=== PATIENT | female | born 1930 | race American Indian/Alaskan Native ===

== ENCOUNTER 2016-12-06 10:17 | Emergency (ER) | payer MEDICARE ==
--- NOTE | 2016-12-06 10:53 | C.PDOC ---
History Of Present Illness 86 y/o female with PMHx of COPD, HTN, and Hyperthyroidism, presents to the ED for evaluation of multiple complaints. Patient reports a cough which began around 2 days ago. Patient's family member also notes that she was complaining of diarrhea this morning, but patient denies such complaint currently. Patient also notes right lower leg pain associated with intermittent swelling which began around 6 months ago. Patient states her symptoms may have started after she underwent a stress test with Dr. Novak. Additionally, patient states she was instructed by her PMD to undergo radiology study pertaining to her leg symptoms. Patient is unaware of the type of study and the results. She denies fever, chills, chest pain, shortness of breath, diarrhea, nausea, vomiting, extremity numbness/weakness. PMD: Dr. Yony Cutler Time Seen by Provider: 12/06/16 10:42 Chief Complaint (Nursing): Lower Extremity Problem/Injury History Per: Patient, Family History/Exam Limitations: no limitations Onset/Duration Of Symptoms: Days, Intermittent Episodes Current Symptoms Are (Timing): Still Present Additional History Per: Patient, Family Past Medical History Reviewed: Historical Data, Nursing Documentation, Vital Signs Vital Signs: Last Vital Signs Temp 99.1 F 12/06/16 12:22 Pulse 74 12/06/16 12:22 Resp 20 12/06/16 12:22 BP 133/69 12/06/16 12:22 Pulse Ox 95 12/06/16 12:22 - Medical History PMH: COPD, HTN, Hyperthyroidism Surgical History: No Surg Hx Family History: States: Unknown Family Hx - Social History Hx Alcohol Use: No Hx Substance Use: No - Immunization History Hx Tetanus Toxoid Vaccination: No Hx Influenza Vaccination: No Hx Pneumococcal Vaccination: Yes (2008) Review Of Systems Constitutional: Negative for: Fever, Chills Cardiovascular: Negative for: Chest Pain Respiratory: Positive for: Cough. Negative for: Shortness of Breath Gastrointestinal: Negative for: Nausea, Vomiting, Abdominal Pain, Diarrhea Physical Exam - Physical Exam Appears: Non-toxic, No Acute Distress Skin: Normal Color, Warm, Dry Eye(s): bilateral: Normal Inspection Oral Mucosa: Moist Neck: Supple Chest: Symmetrical, No Deformity, No Tenderness Cardiovascular: Rhythm Regular, No Murmur Respiratory: No Rales, Rhonchi (generalized ), No Wheezing, Other (+wet cough noted ) Gastrointestinal/Abdominal: Soft, No Tenderness, No Guarding, No Rebound Extremity: Normal ROM, No Tenderness, Capillary Refill (less than 2 seconds ), Other (+1 pitting edema to ankles bilaterally; no leg asymmetry) Pulses: Left Dorsalis Pedis: Normal, Right Dorsalis Pedis: Normal Neurological/Psych: Normal Speech, Normal Cognition ED Course And Treatment - Laboratory Results Result Diagrams: 12/06/16 11:13 12/06/16 11:13 O2 Sat by Pulse Oximetry: 93 Pulse Ox Interpretation: Abnormal - Radiology CXR: Interpreted by Me CXR Interpretation: Yes: No Acute Disease Progress Note: Labs, EKG, Venous Duplex Scan RLE, CXR ordered and reviewed. Progress - Re-Evaluation Re-evaluation Note: 12/06/16 13:36 PT W HO RA? ?HO PRIOR ABN WBC ELEVATION. NO FEVER, NV, CHILLS. PT REFUSING TO WAIT FOR ESTHETIC DERMATOLOGIST FOR DVT STUDY. WISHES DC HOME, WILL FU W PMD THIS WEEK - Data Reviewed Data Reviewed: Lab, Diagnostic imaging, EKG, Old records - Continuity of Care Discussed patient case with:: Patient, Family-HIPPA compliant Disposition Counseled Patient/Family Regarding: Studies Performed, Diagnosis, Need For Followup - Disposition Referrals: YOUR,PMD [Other] Disposition: HOME/ ROUTINE Disposition Time: 13:36 Condition: GOOD Additional Instructions: YOU HAVE REFUSED TO HAVE A DVT STUDY TO EVALUATE FOR POSSIBLE BLOOD CLOT IN YOUR LEG. SEE YOUR PMD THIS WEEK. RETURN IF WORSENING SYMPTOMS. Prescriptions: Azithromycin 250 mg PO DAILY #6 tab Instructions: Leg Edema (ED), Acute Cough (ED) Forms: [employer] (Bengali) - Clinical Impression Clinical Impression: Chronic leg pain, Lymphocytosis, Cough - Scribe Statement The provider has reviewed the documentation as recorded by the Scribe (Gardenia Hartley) Provider Attestation: All medical record entries made by the Scribe were at my direction and personally dictated by me. I have reviewed the chart and agree that the record accurately reflects my personal performance of the history, physical exam, medical decision making, and the department course for this patient. I have also personally directed, reviewed, and agree with the discharge instructions and disposition.
[2016-12-06 11:16] LABS: BASO # 0.1 K/uL (0.0-0.2); BASO % 0.7 % (0.0-2.0); EOS # 0.1 K/uL (0.0-0.7); EOS % 0.8 % (0.0-4.0); HEMOGLOBIN 12.1 g/dL (11.0-16.0); LYMPH # 1.8 K/uL (1.0-4.3); LYMPH % 9.9 % (20.0-40.0); MEAN CELL VOLUME 88.6 fL (81.0-99.0); MEAN CORPUSCULAR HEMOGLOBIN 29.6 pg (27.0-31.0); MEAN CORPUSCULAR HGB CONC 33.4 g/dL (33.0-37.0); MEAN PLATELET VOLUME 7.9 fL (7.2-11.7); MONO # 1.2 K/uL (0.0-0.8); MONO % 6.5 % (0.0-10.0); NEUT # 15.2 K/uL (1.8-7.0); NEUT % 82.1 % (50.0-75.0); NRBC % 0.1 % (0.0-2.0); PLATELET COUNT 240 K/uL (130-400); RBC 4.07 Mil/uL (3.80-5.20); WHITE BLOOD COUNT 18.5 K/uL (4.8-10.8)
[2016-12-06 11:22] LABS: ALBUMIN 4.1 g/dL (3.5-5.0)
[2016-12-06 11:24] LABS: GFR AFRICAN-AMERICAN > 60; GFR NON-AFRICAN AMERICAN > 60
[2016-12-06 11:25] LABS: ALT/SGPT 30 U/L (9-52); AST/SGOT 27 U/L (14-36); BLOOD UREA NITROGEN 7 mg/dL (7-17)
[2016-12-06 11:26] LABS: VENOUS BLOOD GAS BASE EXCESS 6.6 mmol/L (0.0-2.0); VENOUS BLOOD GAS PCO2 50 mmHg (40-60); VENOUS BLOOD GAS PO2 23 mm/Hg (30-55); VENOUS BLOOD PH 7.42 (7.32-7.43)
[2016-12-06 11:26] LABS: CALCIUM 8.8 mg/dl (8.6-10.4)
[2016-12-06 11:34] LABS: B-TYPE NATRIURETIC PEPTIDE 192 pg/mL (0-900)
[2016-12-06 11:36] LABS: SQUAMOUS EPITHIAL 1 /hpf (0-5); URINE BILIRUBIN NEGATIVE (NEGATIVE); URINE BLOOD NEGATIVE (NEGATIVE); URINE CLARITY Clear (Clear); URINE COLOR Yellow (YELLOW); URINE GLUCOSE (UA) NORMAL (Normal); URINE LEUKOCYTE ESTERASE TRACE Leu/uL (Negative); URINE NITRATE NEGATIVE (NEGATIVE); URINE PROTEIN NEGATIVE (NEGATIVE); URINE UROBILINOGEN NORMAL mg/dL (0.2-1.0)
--- NOTE | 2016-12-06 11:38 | RAD ---
PROCEDURE: CHEST RADIOGRAPH, 1 VIEW HISTORY: Shortness of breath COMPARISON: None available. FINDINGS: LUNGS: Biapical pleural thickening with upper lobe granulomatous changes. Somewhat nodular opacity at the left lung apex which may represent confluence of shadows with ribs and vessels. Diffuse increased interstitial lung markings which represent underlying edema and or interstitial infiltrates. Right hilar prominence. Patchy increased consolidative changes in the right infrahilar region. Scattered nodularity throughout both lung pavon. PLEURA: No pneumothorax or pleural fluid seen. CARDIOVASCULAR: Cardiomegaly. Calcification at the aortic knob. OSSEOUS STRUCTURES: Degenerative changes in the spine and shoulders. VISUALIZED UPPER ABDOMEN: Multiple radiopaque densities project over the upper abdomen and bilateral yas thoraces, possibly external. OTHER FINDINGS: None. IMPRESSION: Biapical pleural thickening with upper lobe granulomatous changes. Somewhat nodular opacity at the left lung apex which may represent confluence of shadows with ribs and vessels. Diffuse increased interstitial lung markings which represent underlying edema and or interstitial infiltrates. Right hilar prominence. Patchy increased consolidative changes in the right infrahilar region. Scattered nodularity throughout both lung pavon.
[2016-12-06 12:11] LABS: EOSINOPHIL 1 % (0-4); LYMPHOCYTE 9 % (20-40); MONOCYTE 6 % (0-10); NEUTROPHIL 84 % (50-75); PLATELET ESTIMATE NORMAL (NORMAL); TOTAL CELLS COUNTED 100
[2016-12-06 12:12] LABS: ANISOCYTOSIS SLIGHT
[2016-12-06 12:13] LABS: LARGE PLATELETS PRESENT
[2016-12-06 12:23] VITALS: RESP 20
[2016-12-06 13:50] VITALS: BP 158/74; PULSE 102; TEMP 98.9; O2SAT 95
== END 2016-12-06 14:21 | disposition home or self-care (01) ==
LOC: C.ER 10:17
DX: M79.661 Pain in right lower leg (principal); D72.820 Lymphocytosis (symptomatic); R05 Cough

== ENCOUNTER 2017-02-17 07:58 | Emergency (ER) | payer MEDICARE ==
[2017-02-17 08:19] VITALS: TEMP 98.7
--- NOTE | 2017-02-17 09:13 | RAD ---
PROCEDURE: Radiographs of the right tibia and fibula. HISTORY: pain COMPARISON: None available. TECHNIQUE: Frontal and lateral views obtained. FINDINGS: BONES: No fracture or destructive lesion. JOINT SPACES: Unremarkable. OTHER FINDINGS: None. IMPRESSION: Unremarkable radiographs of the right tibia and fibula.
--- NOTE | 2017-02-17 10:20 | C.PDOC ---
History Of Present Illness 86 y/o female c/o chronic right lower leg pain seen in ED for same complaint but refused US. Denies weakness, numbness, or injury. Patient ambulating without difficulty. Time Seen by Provider: 02/17/17 08:10 Chief Complaint (Nursing): Lower Extremity Problem/Injury History Per: Patient History/Exam Limitations: no limitations Onset/Duration Of Symptoms: Days (Chronic) Current Symptoms Are (Timing): Still Present Severity: Mild Recent travel outside of the [place]: No Additional History Per: Patient Past Medical History Reviewed: Historical Data, Nursing Documentation, Vital Signs Vital Signs: Last Vital Signs Temp 98.7 F 02/17/17 08:15 Pulse 88 02/17/17 10:26 Resp 16 02/17/17 10:26 BP 165/80 H 02/17/17 10:26 Pulse Ox 96 02/17/17 18:18 - Medical History PMH: Asthma, COPD, HTN, Hyperthyroidism Denies: Hypothyroidism, Chronic Kidney Disease Family History: States: Unknown Family Hx - Social History Hx Alcohol Use: No Hx Substance Use: No - Immunization History Hx Tetanus Toxoid Vaccination: No Hx Influenza Vaccination: No Hx Pneumococcal Vaccination: Yes (2008) Review Of Systems Except As Marked, All Systems Reviewed And Found Negative. Musculoskeletal: Positive for: Leg Pain (Right leg) Neurological: Negative for: Weakness, Numbness Physical Exam - Physical Exam Appears: Non-toxic, No Acute Distress Skin: Warm, Dry Head: Atraumatic, Normacephalic Cardiovascular: Rhythm Regular Respiratory: Normal Breath Sounds Extremity: Normal ROM, Tenderness (Right lower leg, anterior tibia), No Calf Tenderness, Capillary Refill (<2secs), No Deformity Extremity: Right: [place] Tenderness (anteriot mid lower leg), Bilateral: Atraumatic, No Pedal Edema, Normal Color And Temperature, Normal ROM Pulses: Left Dorsalis Pedis: Normal, Right Dorsalis Pedis: Normal Neurological/Psych: Oriented x3, Normal Motor, Normal Sensation Gait: Steady ED Course And Treatment O2 Sat by Pulse Oximetry: 96 (RA) Pulse Ox Interpretation: Normal - Other Rad No standard instances X-Ray: Interpreted by Me Interpretation: right tib/fib: neg Progress Note: Treated with tylenol. Doppler: No DVT as per tech. On re- evaluation ambulating with steady gait Reassessment Condition: Improved Medical Decision Making Medical Decision Making: Plans: * Tylenol * XRAY right leg * US Doppler XRAY right leg: No fractures or dislocations US Doppler: Negative Patient will be discharge and was instructed to follow up with her PMD for further evaluation. Disposition Counseled Patient/Family Regarding: Studies Performed, Diagnosis, Need For Followup - Disposition Referrals: [facility] [Outside] [facility] [Outside] Disposition: HOME/ ROUTINE Disposition Time: 10:30 Condition: GOOD Additional Instructions: Follow up with your PMD for further evaluation Instructions: Leg Pain (ED) Forms: [employer] (Scottish) - POA Present On Arrival: None - Clinical Impression Clinical Impression: Chronic leg pain - Scribe Statement The provider has reviewed the documentation as recorded by the Scribe Chris devries All medical record entries made by the Laurieibe were at my direction and personally dictated by me. I have reviewed the chart and agree that the record accurately reflects my personal performance of the history, physical exam, medical decision making, and the department course for this patient. I have also personally directed, reviewed, and agree with the discharge instructions and disposition.
[2017-02-17 10:26] VITALS: BP 165/80; PULSE 88; RESP 16
[2017-02-17 10:32] VITALS: O2SAT 96
--- NOTE | 2017-02-17 13:34 | VASCLAB ---
PROCEDURE: Right Lower Extremity Venous Duplex Exam. HISTORY: pain PRIORS: None. TECHNIQUE: Right common femoral, femoral, popliteal and posterior tibial, peroneal and great saphenous veins were evaluated. Flow was assessed with color Doppler, compressibility, assessment of phasic flow and augmentation response. Report prepared by BRYCE Hare, RVT FINDINGS: RIGHT: 1. Common Femoral Vein: 1.1. Compressibility - Fully compressible: Thrombus - None: Flow - Phasic: Augmentation -Normal: Reflux - None. 2. Femoral Vein: 2.1. Compressibility - Fully compressible: Thrombus - None: Flow - Phasic: Augmentation -Normal: Reflux - None. 3. Popliteal Vein: 3.1. Compressibility - Fully compressible: Thrombus - None: Flow - Phasic: Augmentation -Normal: Reflux - None. 4. Posterior Tibial Vein: 4.1. Compressibility - Fully compressible: Thrombus - None: Flow - Phasic: Augmentation -Normal: Reflux - None. 5. Peroneal Vein: 5.1. Compressibility - Fully compressible: Thrombus - None: Flow - Phasic: Augmentation -Normal: Reflux - None. 6. Great Saphenous Vein: 6.1. Compressibility - Fully compressible: Thrombus -None: Flow - Phasic: Augmentation - Normal: Reflux - None. OTHER FINDINGS: IMPRESSION: No evidence of deep or superficial vein thrombosis of the right lower extremity with excellent venous flow. Normal valve function noted of the right side. Normal venous flow noted in the left common femoral vein.
== END 2017-02-17 10:26 | disposition home or self-care (01) ==
LOC: C.ER 07:58
DX: G89.29 Other chronic pain (principal); M79.661 Pain in right lower leg

== ENCOUNTER 2017-04-08 10:26 | Emergency (ER) | payer MEDICARE ==
[2017-04-08 10:38] VITALS: O2SAT 95
--- NOTE | 2017-04-08 11:09 | C.PDOC ---
Time Seen by Provider: 04/08/17 10:50 Chief Complaint (Nursing): Back Pain Past Medical History Vital Signs: Last Vital Signs Temp 98.5 F 04/08/17 10:34 Pulse 100 H 04/08/17 10:34 Resp 20 04/08/17 10:34 BP 176/77 H 04/08/17 10:34 Pulse Ox 95 04/08/17 10:34 - Medical History PMH: Asthma, COPD, HTN, Hyperthyroidism Denies: Hypothyroidism, Chronic Kidney Disease Family History: States: Unknown Family Hx - Social History Hx Alcohol Use: No Hx Substance Use: No - Immunization History Hx Tetanus Toxoid Vaccination: No Hx Influenza Vaccination: No Hx Pneumococcal Vaccination: Yes (2008) ED Course And Treatment O2 Sat by Pulse Oximetry: 95 Disposition - Disposition
--- NOTE | 2017-04-08 11:11 | C.PDOC ---
History Of Present Illness 86 y/o female presents to ED with complaints of right lower leg pain and swelling for 2-3 months. Patient denies any recent injury, change in sensation and is ambulatory at ED. No other complaints at this time. Time Seen by Provider: 04/08/17 10:50 Chief Complaint (Nursing): Back Pain History Per: Patient History/Exam Limitations: no limitations Onset/Duration Of Symptoms: Days Current Symptoms Are (Timing): Still Present Past Medical History Reviewed: Historical Data, Nursing Documentation, Vital Signs Vital Signs: Last Vital Signs Temp 98.4 F 04/08/17 12:45 Pulse 98 H 04/08/17 12:45 Resp 18 04/08/17 12:45 BP 196/81 H 04/08/17 12:45 Pulse Ox 95 04/08/17 15:43 - Medical History PMH: Asthma, COPD, HTN, Hyperthyroidism Surgical History: No Surg Hx Family History: States: No Known Family Hx - Social History Hx Alcohol Use: No Hx Substance Use: No - Immunization History Hx Tetanus Toxoid Vaccination: No Hx Influenza Vaccination: No Hx Pneumococcal Vaccination: Yes (2008) Review Of Systems Constitutional: Negative for: Fever, Chills Gastrointestinal: Negative for: Nausea, Vomiting Musculoskeletal: Positive for: Leg Pain, Foot Pain Skin: Negative for: Rash Neurological: Negative for: Weakness, Numbness Physical Exam - Physical Exam Appears: Non-toxic, No Acute Distress Skin: Normal Color, Warm, Dry, No Rash Head: Atraumatic, Normacephalic Eye(s): bilateral: Normal Inspection Oral Mucosa: Moist Neck: Normal ROM, Supple Chest: Symmetrical Cardiovascular: Rhythm Regular Respiratory: Normal Breath Sounds, No Rales, No Rhonchi, No Wheezing Extremity: Normal ROM, No Tenderness, Capillary Refill (<2 seconds), No Swelling Pulses: Left Dorsalis Pedis: Normal, Right Dorsalis Pedis: Normal Neurological/Psych: Oriented x3, Normal Motor, Normal Sensation Gait: Steady ED Course And Treatment O2 Sat by Pulse Oximetry: 95 (RA) Pulse Ox Interpretation: Normal - Other Rad No standard instances X-Ray: Interpreted by Me, Viewed By Me, Read By Radiologist (FINDINGS:) Interpretation: tib/fib no fx. FINDINGS: BONES: No acute fracture or dislocation. Dysmorphic posterior subtalar joint-posterior calcaneus remote prior trauma suspect. Superior calcaneal subcortical cystic change. Correlate clinically with any prior trauma here inner intervention. If non further evaluation with MRI of the right hindfoot ankle advised. Prominent quadriceps insertional enthesophyte/blending superior anterior patellar spurring. JOINT SPACES: Posterior subtalar joint space narrowing with sclerosis. Bordering posterior superior calcaneal subcortical cystic changes. Frontal view suggest subarticular cystic changes at ankle level as well. OTHER FINDINGS: Area of clinical interest is anterior lower leg for possible foreign body. Here a 1 x 6 mm hyperdensity in the subcutaneous tissues without surrounding subcutaneous emphysema or focal soft tissue swelling is noted. The etiology for the subcutaneous hyperdensity/ foreign body or other soft tissue calcification is unknown. Given the absence of significant soft tissue swelling, minimal subacute trauma and or are remote trauma regarding any potential foreign body are favored considerations. An incidental phlebolith is another. Soft tissues scattered vascular calcifications noted conceivably a tiny anterior phlebolith could also simulate the foreign body along this anterior lower leg the clinically indicated area of interest denoted by a digital arrow. IMPRESSION: Nonspecific anterior subcu 2 6 x 1 mm hyperdensity lower leg level as described above. Correlation with detailed clinical history needed. Here a foreign body of unknown chronicity is not excluded. Other considerations including incidental phleboliths are not excluded. Abnormal appearing posterior subtalar joint/blending calcaneus. Please note the above. Tibiotalar arthrosis. Prominent quadriceps insertional enthesophyte/ blending patellar spur Progress Note: Patient evaluated multipler times for right leg pain. Patient reports recent MRI of lower leg. On re-evaluation ambulating with steady gait. Treferred to orthopedic for further evaluation Reassessment Condition: Unchanged Medical Decision Making Medical Decision Making: Patient seen recently for same symptoms and had negative Doppler Plan: Xray of right lower leg Disposition Counseled Patient/Family Regarding: Studies Performed, Diagnosis, Need For Followup - Disposition Referrals: Ronald Nixon III, MD [Staff Provider] - Disposition: HOME/ ROUTINE Disposition Time: 14:20 Condition: STABLE Additional Instructions: Follow up with ortho for further evaluation Instructions: Leg Pain (ED) Forms: [facility] (Welsh) - POA Present On Arrival: None - Clinical Impression Clinical Impression: Leg pain - PA / COSMETICIAN APPRENTICE / Resident Statement MD/DO has reviewed & agrees with the documentation as recorded. - Scribe Statement The provider has reviewed the documentation as recorded by the Manish Moura All medical record entries made by the Manish were at my direction and personally dictated by me. I have reviewed the chart and agree that the record accurately reflects my personal performance of the history, physical exam, medical decision making, and the department course for this patient. I have also personally directed, reviewed, and agree with the discharge instructions and disposition.
[2017-04-08 12:48] VITALS: BP 196/81; PULSE 98; RESP 18; TEMP 98.4
--- NOTE | 2017-04-08 14:01 | RAD ---
PROCEDURE: Radiographs of the right tibia and fibula. HISTORY: pain COMPARISON: None available. TECHNIQUE: Frontal and lateral views obtained. FINDINGS: BONES: No acute fracture or dislocation. Dysmorphic posterior subtalar joint-posterior calcaneus remote prior trauma suspect. Superior calcaneal subcortical cystic change. Correlate clinically with any prior trauma here inner intervention. If non further evaluation with MRI of the right hindfoot ankle advised Prominent quadriceps insertional enthesophyte/blending superior anterior patellar spurring JOINT SPACES: Posterior subtalar joint space narrowing with sclerosis. Bordering posterior superior calcaneal subcortical cystic changes. Frontal view suggest subarticular cystic changes at ankle level as well OTHER FINDINGS: Area of clinical interest is anterior lower leg for possible foreign body. Here a 1 x 6 mm hyperdensity in the subcutaneous tissues without surrounding subcutaneous emphysema or focal soft tissue swelling is noted. The etiology for the subcutaneous hyperdensity/ foreign body or other soft tissue calcification is unknown. Given the absence of significant soft tissue swelling, minimal subacute trauma and or are remote trauma regarding any potential foreign body are favored considerations. An incidental phlebolith is another Soft tissues scattered vascular calcifications noted conceivably a tiny anterior phlebolith could also simulate the foreign body along this anterior lower leg the clinically indicated area of interest denoted by a digital arrow IMPRESSION: Nonspecific anterior subcu 2 6 x 1 mm hyperdensity lower leg level as described above. Correlation with detailed clinical history needed. Here a foreign body of unknown chronicity is not excluded. Other considerations including incidental phleboliths are not excluded. Abnormal appearing posterior subtalar joint/blending calcaneus. Please note the above Tibiotalar arthrosis Prominent quadriceps insertional enthesophyte/ blending patellar spur
== END 2017-04-08 12:53 | disposition home or self-care (01) ==
LOC: C.ER 10:26
DX: M79.661 Pain in right lower leg (principal)

== ENCOUNTER 2017-08-21 12:40 | Inpatient (IN) | payer MEDICARE ==
[2017-08-21 13:49] LABS: BASO % 0.5 % (0.0-2.0); EOS % 0.1 % (0.0-4.0); LYMPH # 1.1 K/uL (1.0-4.3); LYMPH % 12.8 % (20.0-40.0); MEAN CELL VOLUME 89.6 fL (81.0-99.0); MEAN CORPUSCULAR HEMOGLOBIN 30.4 pg (27.0-31.0); MEAN CORPUSCULAR HGB CONC 33.9 g/dL (33.0-37.0); MEAN PLATELET VOLUME 8.1 fL (7.2-11.7); MONO # 0.8 K/uL (0.0-0.8); MONO % 9.1 % (0.0-10.0); NEUT # 6.9 K/uL (1.8-7.0); NEUT % 77.5 % (50.0-75.0); NRBC % 0.1 % (0.0-2.0); RBC 4.26 Mil/uL (3.80-5.20); RED CELL DISTRIBUTION WIDTH 15.2 % (11.5-14.5)
[2017-08-21 13:53] LABS: WHITE BLOOD COUNT 8.8 K/uL (4.8-10.8)
[2017-08-21 14:20] LABS: ALB/GLOB RATIO 0.9 (1.0-2.1); ALBUMIN 3.8 g/dL (3.5-5.0); CALCIUM 8.4 mg/dl (8.6-10.4)
[2017-08-21 14:32] LABS: TROPONIN I 0.047 ng/mL (0.00-0.120)
[2017-08-21] MEDS ORDERED: Azithromycin 500mg/250ML NS 500 MG/250 ML BAG IVPB STA (14:37)
[2017-08-21] MEDS ORDERED: Sodium Chloride 0.9% 1,000 ML IV SCH (14:45)
--- NOTE | 2017-08-21 14:49 | CT ---
PROCEDURE: CT HEAD WITHOUT CONTRAST. HISTORY: syncope COMPARISON: Unenhanced head CT 01/10/2016. TECHNIQUE: Axial computed tomography images were obtained through the head/brain without intravenous contrast. Radiation dose: Total exam DLP = 992.24 mGy-cm. This CT exam was performed using one or more of the following dose reduction techniques: Automated exposure control, adjustment of the mA and/or kV according to patient size, and/or use of iterative reconstruction technique. FINDINGS: HEMORRHAGE: No intracranial hemorrhage. BRAIN: Diffuse cerebral atrophy chronic microangiopathy are reiterated with a mild interval progression of chronic microangiopathy appreciated. There is no mass effect or definite cortical edema identified. The sulci and cisterns are stable in appearance. There is no suspicious extra-axial fluid collection appreciated in the midline brain anatomy remains unremarkable diffusely. VENTRICLES: Unremarkable. No hydrocephalus. CALVARIUM: Unremarkable. PARANASAL SINUSES: Hyper pneumatization of the bilateral frontal air cells is again appreciated without acute sinus disease with remaining perineal sinuses unremarkable once again. MASTOID AIR CELLS: Unremarkable as visualized. No inflammatory changes. OTHER FINDINGS: None. IMPRESSION: Limited interval progression in chronic microangiopathy and diffuse cerebral atrophy again evident as well. No acute intracranial findings are appreciated grossly. No definitive acute intracranial findings. Follow-up MRI or CT is available as clinically warranted.
[2017-08-21] MEDS ORDERED: Sodium Chloride 0.9% 1,000 ML ONE (14:57)
[2017-08-21] MEDS ORDERED: cefTRIAXone IV 1 gm in Dextros 50 ML IVPB ONE (14:57)
[2017-08-21] MEDS ORDERED: Azithromycin 500mg/250ML NS 500 MG/250 ML BAG IVPB ONE (14:57)
[2017-08-21] MEDS: Sodium Chloride 0.9% 1,000 ML IV SCH (15:08)
--- NOTE | 2017-08-21 17:45 | RAD ---
PROCEDURE: CHEST RADIOGRAPH, 1 VIEW HISTORY: Rule out infiltrate. COMPARISON: Comparison made with chest radiograph 12/06/2016. FINDINGS: Note that the medial right and to a lesser degree left lung apex partially obscured due to overlying mandible and facial soft tissue artifact. LUNGS: Poor inspiration with low lung volumes, crowded bronchovascular markings and mild bibasilar atelectasis. Vague increased density also seen in the right upper lobe which could be confluence of shadow artifact however developing infiltrate could be excluded followup radiographs. PLEURA: No pneumothorax or pleural fluid seen. CARDIOVASCULAR: Normal. OSSEOUS STRUCTURES: No significant abnormalities. VISUALIZED UPPER ABDOMEN: Normal. OTHER FINDINGS: None. IMPRESSION: The slightly limited study due to partial obscuration of both medial lung apices as above. Poor inspiration with low lung volumes, crowded bronchovascular markings and mild bibasilar atelectasis. Vague increased density also seen in the right upper lobe which could be confluence of shadow artifact however developing infiltrate could be excluded followup radiographs.
[2017-08-21 17:51] LABS: SQUAMOUS EPITHIAL 5 /hpf (0-5); URINE BACTERIA FEW (<OCC); URINE BILIRUBIN NEGATIVE (NEGATIVE); URINE BLOOD 1+ (NEGATIVE); URINE CLARITY Hazy (Clear); URINE COLOR Yellow (YELLOW); URINE GLUCOSE (UA) NORMAL (Normal); URINE LEUKOCYTE ESTERASE NEG Leu/uL (Negative); URINE PROTEIN 1+ mg/dL (NEGATIVE); URINE UROBILINOGEN NORMAL mg/dL (0.2-1.0)
--- NOTE | 2017-08-21 18:26 | C.PDOC ---
Time Seen by Provider: 08/21/17 12:51 Chief Complaint (Nursing): Weakness/Neurological Deficit Past Medical History Vital Signs: Last Vital Signs Temp 98 F 08/21/17 17:18 Pulse 78 08/21/17 17:18 Resp 18 08/21/17 17:18 BP 110/76 08/21/17 17:18 Pulse Ox 98 08/21/17 17:18 - Medical History PMH: Asthma, COPD, HTN, Hyperthyroidism Denies: Hypothyroidism, Chronic Kidney Disease Family History: States: Unknown Family Hx - Social History Hx Alcohol Use: No Hx Substance Use: No - Immunization History Hx Tetanus Toxoid Vaccination: No Hx Influenza Vaccination: No Hx Pneumococcal Vaccination: Yes (2008) ED Course And Treatment - Laboratory Results Result Diagrams: 08/21/17 13:41 08/21/17 13:41 O2 Sat by Pulse Oximetry: 98 Disposition - Disposition Disposition: HOSPITALIZED Disposition Time: 15:15 Condition: FAIR - Clinical Impression Clinical Impression: Dehydration, Acute renal failure, Weakness, Community acquired pneumonia
--- NOTE | 2017-08-21 19:26 | CP.PCM.HP ---
History of Present Illness - History of Present Illness History of Present Illness: Chief complaint: weakness and cough History of present illness: Patient is 86-year-old female with chronic history of hypertension, hyperthyroidism, COPD, current active smoker came to the ER with cough and productive sputum and weakness and not eating well for 3 days. She was not even drinking enough liquids today. Pt daughter went to her house and noted that she slide down while trying to sit on toilet and on the floor. family brought her to ED. Patient since more than a year was not able to walk, difficulty in walking, using walker for walking. She had an episode of sharp pain in the right chest area one year ago falling injection from the PMD, as per the patient, and she felt like a shooting pain in the right leg, since then she's not able to walk. She had a multiple hospitalization in the past. Currently, she's not able to walk, she had a difficulty in walking, without the walker she's feeling like a buckling in the right knee, and feeling like falling , at least 6 episodes of fall in the past. She had no fracture so far. She also was using nebulizer, inhaler, but currently stopped taking, and she's continued to smoke. Her blood pressure is controlled and been seen by fruit stuffer. Patient is also being seen by internet designer. Had MRI done in the past. Past medical history: Hypertension, hypothyroidism, COPD, osteoarthritis. Surgical history none. Family history, social history noted from the chart. BROTHER is . He at the age of 69. It was a natural . He had alzheimer disease. Current medications noted from the chart. norvasc advair tapazole Review of systems: Patient is currently having no headache, complaining of lower back pain on and off, bilateral knee pain, right leg, shooting electrical sensation noted, and also weakness, numbness, and also difficulty in walking, buckling noted. cough mucous weak still smokes On examination: HEENT PERRLA, neck supple No thyromegaly was noted and no cervical adenopathy noted Chest bilateral rales noted CVS regular heart sound, no murmur Abdomen soft and no organomegaly Extremities no pedal edema, no leg swelling, pedal pulses are good. GAG WRITER alert awake oriented x3. Patient is having severe weakness in the right lower extremity, especially both quadriceps, and tight muscles. Compared to the left side she has increasing weakness, and numbness and sensory symptoms on the right leg noted. Underlying disc prolapse and a disc disease cannot be ruled out. I reviewed the patient's old CAT scan of the chest which is she had been 2016 showing evidence of a right lung nodule, which probably needs to be reevaluated. She also had a CT of the abdomen and pelvis in 2016, which was showing evidence of pelvic mass which needs to be reevaluated. Patient also has a severe osteoarthritic changes in the lumbar spine. labs noted elevated Cr Assessment and recommendation: 86-year-old female, chronic history of hypertension, hyperthyroidism, COPD, current active smoker. In the past patient also had epidural injection. Patient possibly has lumbar disc disease, spinal stenosis, causing neurocompression causing weakness in the right leg. Patient also has a COPD, current active smoking, lung nodules, recommended CT of the chest, but patient is very reluctant to quit smoking. I also advised the patient to do a CT of the abdomen and pelvis to reevaluate the pelvic mass. admitted with acute copd exacerbation and pneumonia CAP can not be ruled out acute renal failure prerenal? dehydration weakness on antibiotic for COPD exacerbation BD will add mild steroid DVT and GI prophylaxis [facility] re[facility] Present on Admission - Present on Admission Any Indicators Present on Admission: No History of DVT/PE: No History of Uncontrolled Diabetes: No Urinary Catheter: No Decubitus Ulcer Present: No Past Patient History - Infectious Disease Hx of Infectious Diseases: None - Past Medical History & Family History Past Medical History?: Yes - Past Social History Smoking Status: Former Smoker - CARDIAC Hx Hypertension: Yes - PULMONARY Hx Asthma: Yes Hx Chronic Obstructive Pulmonary Disease (COPD): Yes - NEUROLOGICAL Hx Neurological Disorder: No - HEENT Hx HEENT Problems: No - RENAL Hx Chronic Kidney Disease: No - ENDOCRINE/METABOLIC Hx Hyperthyroidism: Yes Hx Hypothyroidism: No - HEMATOLOGICAL/ONCOLOGICAL Hx Blood Transfusions: No - INTEGUMENTARY Hx Dermatological Problems: No - MUSCULOSKELETAL/RHEUMATOLOGICAL Hx Falls: Yes - GASTROINTESTINAL Hx Gastrointestinal Disorders: No - GENITOURINARY/GYNECOLOGICAL Hx Genitourinary Disorders: No - PSYCHIATRIC Hx Substance Use: No - SURGICAL HISTORY Hx Surgeries: Yes Other/Comment: "EYE IMPLANTS" - ANESTHESIA Hx Anesthesia: Yes Hx Anesthesia Reactions: No Hx Malignant Hyperthermia: No Has any member of the family had a problem w/ anesthesia?: No Meds Allergies/Adverse Reactions: Allergies Allergy/AdvReac Type Severity Reaction Status Date / Time No Known Allergies Allergy Verified 08/21/17 12:50 Results - Vital Signs Recent Vital Signs: Last Vital Signs Temp 99.1 F 08/21/17 18:37 Pulse 88 08/21/17 18:37 Resp 20 08/21/17 18:37 BP 121/56 L 08/21/17 18:37 Pulse Ox 95 08/21/17 18:37 - Labs Result Diagrams: 08/22/17 08:08 08/21/17 22:50 Labs: Laboratory Results - last 24 hr 08/21/17 08/21/17 08/21/17 12:56 13:41 13:41 WBC 8.8 D RBC 4.26 Hgb 13.0 Hct 38.2 MCV 89.6 MCH 30.4 MCHC 33.9 RDW 15.2 H Plt Count 261 MPV 8.1 Neut % (Auto) 77.5 H Lymph % (Auto) 12.8 L [place] % (Auto) 9.1 Eos % (Auto) 0.1 Baso % (Auto) 0.5 Neut # (Auto) 6.9 Lymph # (Auto) 1.1 [place] # (Auto) 0.8 Eos # (Auto) 0.0 Baso # (Auto) 0.0 Sodium 137 Potassium 3.7 Chloride 93 L Carbon Dioxide 27 Anion Gap 20 BUN 37 H Creatinine 2.3 H Est GFR ( Amer) 24 Est GFR (Non-Af Amer) 20 POC Glucose (mg/dL) 101 Random Glucose 99 Calcium 8.4 L Total Bilirubin 0.5 AST 84 H ALT 35 Alkaline Phosphatase 82 Troponin I 0.0470 NT-Pro-B Natriuret Pep Total Protein 8.2 Albumin 3.8 Globulin 4.4 H Albumin/Globulin Ratio 0.9 L Urine Color Urine Clarity Urine pH Ur Specific [place] Urine Protein Urine Glucose (UA) Urine Ketones Urine Blood Urine Nitrate Urine Bilirubin Urine Urobilinogen Ur Leukocyte Esterase Urine WBC (Auto) Urine RBC (Auto) Ur Squamous Epith Cells Urine Bacteria Influenza Typ A,B (EIA) 08/21/17 08/21/17 08/21/17 14:38 14:41 17:33 WBC RBC Hgb Hct MCV MCH MCHC RDW Plt Count MPV Neut % (Auto) Lymph % (Auto) [place] % (Auto) Eos % (Auto) Baso % (Auto) Neut # (Auto) Lymph # (Auto) [place] # (Auto) Eos # (Auto) Baso # (Auto) Sodium Potassium Chloride Carbon Dioxide Anion Gap BUN Creatinine Est GFR ( Amer) Est GFR (Non-Af Amer) POC Glucose (mg/dL) Random Glucose Calcium Total Bilirubin AST ALT Alkaline Phosphatase Troponin I NT-Pro-B Natriuret Pep 119 Total Protein Albumin Globulin Albumin/Globulin Ratio Urine Color Yellow Urine Clarity Hazy Urine pH 5.0 Ur Specific [place] 1.011 Urine Protein 1+ H Urine Glucose (UA) Normal Urine Ketones Negative Urine Blood 1+ H Urine Nitrate Negative Urine Bilirubin Negative Urine Urobilinogen Normal Ur Leukocyte Esterase Neg Urine WBC (Auto) 37 H Urine RBC (Auto) 8 H Ur Squamous Epith Cells 5 Urine Bacteria Few H Influenza Typ A,B (EIA) Negative for flu a/b
[2017-08-21] MEDS: Albuterol-Ipratrop 3 mg / 0.5 (3 ml) UD INH SCH (20:14)
[2017-08-21] MEDS: Fluticasone-Salmeterol 100-50mcg Diskus INH SCH (20:14)
[2017-08-21] MEDS: Nystatin 100,000 Units/ml Oral Susp 5 ml UD PO SCH (22:10)
[2017-08-21 23:05] LABS: CALCIUM 7.5 mg/dl (8.6-10.4)
--- NOTE | 2017-08-21 23:45 | C.PDOC ---
History Of Present Illness 86 year old female presents to the ED with c/o generalized weakness. Patient states she has not eaten in around 3 days and has had very little to drink. Earlier today, patient states she was walking to her bathroom and about to sit on her toilet when she felt dizzy. Patient also reports cough that has been productive of white sputum. She denies fever, chills, chest pain, shortness of breath. Time Seen by Provider: 08/21/17 12:51 Chief Complaint (Nursing): Weakness/Neurological Deficit History Per: Patient History/Exam Limitations: no limitations Onset/Duration Of Symptoms: Days Current Symptoms Are (Timing): Still Present Past Medical History Reviewed: Historical Data, Nursing Documentation, Vital Signs Vital Signs: Last Vital Signs Temp 98.5 F 08/22/17 03:48 Pulse 92 H 08/22/17 02:19 Resp 20 08/22/17 02:19 BP 128/71 08/22/17 02:19 Pulse Ox 97 08/22/17 02:19 - Medical History PMH: Asthma, COPD, HTN, Hyperthyroidism Denies: Hypothyroidism, Chronic Kidney Disease Surgical History: No Surg Hx Family History: States: Unknown Family Hx - Social History Hx Alcohol Use: No Hx Substance Use: No - Immunization History Hx Tetanus Toxoid Vaccination: No Hx Influenza Vaccination: No Hx Pneumococcal Vaccination: Yes (2008) Review Of Systems Constitutional: Positive for: Weakness. Negative for: Fever, Chills Cardiovascular: Positive for: Chest Pain Respiratory: Positive for: Cough, Sputum (white ) Neurological: Positive for: Dizziness Physical Exam - Physical Exam Appears: Non-toxic, No Acute Distress Skin: Normal Color, Warm, Dry Head: Atraumatic, Normacephalic Eye(s): bilateral: Normal Inspection Oral Mucosa: Dry Neck: Supple Chest: Symmetrical, No Deformity, No Tenderness Cardiovascular: Rhythm Regular, No Murmur Respiratory: Other (coarse sounds to left lung base ) Gastrointestinal/Abdominal: Bowel Sounds (present ), Soft, No Tenderness, No Guarding, No Rebound Extremity: Normal ROM, Capillary Refill (less than 2 seconds ) Neurological/Psych: Oriented x3, Normal Speech, Normal Cognition ED Course And Treatment - Laboratory Results Result Diagrams: 08/21/17 13:41 08/21/17 22:50 ECG: Interpreted By Me, Viewed By Me ECG Rhythm: Sinus Rhythm Interpretation Of ECG: Sinus rhythm at rate 93bpm. LVH. normal axis. O2 Sat by Pulse Oximetry: 95 (on RA) Pulse Ox Interpretation: Normal - Other Rad CXR X-Ray: Interpreted by Me, Viewed By Me, Read By Radiologist Interpretation: PROCEDURE: CHEST RADIOGRAPH, 1 VIEW. HISTORY: Rule out infiltrate. COMPARISON: Comparison made with chest radiograph 12/06/2016. FINDINGS: Note that the medial right and to a lesser degree left lung apex partially obscured due to overlying mandible and facial soft tissue artifact. LUNGS: Poor inspiration with low lung volumes, crowded bronchovascular markings and mild bibasilar atelectasis. Vague increased density also seen in the right upper lobe which could be confluence of shadow artifact however developing infiltrate could be excluded followup radiographs. PLEURA: No pneumothorax or pleural fluid seen. CARDIOVASCULAR: Normal. OSSEOUS STRUCTURES: No significant abnormalities. VISUALIZED UPPER ABDOMEN: Normal. OTHER FINDINGS: None. IMPRESSION: The slightly limited study due to partial obscuration of both medial lung apices as above. Poor inspiration with low lung volumes, crowded bronchovascular markings and mild bibasilar atelectasis. Vague increased density also seen in the right upper lobe which could be confluence of shadow artifact however developing infiltrate could be excluded followup radiographs. - CT Scan/US CT Head Other Rad Studies (CT/US): Interpreted By Me, Read By Radiologist, Radiology Report Reviewed CT/US Interpretation: PROCEDURE: CT HEAD WITHOUT CONTRAST. HISTORY: syncope. COMPARISON: Unenhanced head CT 01/10/2016. TECHNIQUE: Axial computed tomography images were obtained through the head/brain without intravenous contrast. Radiation dose: Total exam DLP = 992.24 mGy-cm. This CT exam was performed using one or more of the following dose reduction techniques: Automated exposure control, adjustment of the mA and/or kV according to patient size, and/or use of iterative reconstruction technique. FINDINGS: HEMORRHAGE: No intracranial hemorrhage. BRAIN: Diffuse cerebral atrophy chronic microangiopathy are reiterated with a mild interval progression of chronic microangiopathy appreciated. There is no mass effect or definite cortical edema identified. The sulci and cisterns are stable in appearance. There is no suspicious extra-axial fluid collection appreciated in the midline brain anatomy remains unremarkable diffusely. VENTRICLES: Unremarkable. No hydrocephalus. CALVARIUM: Unremarkable. PARANASAL SINUSES: Hyper pneumatization of the bilateral frontal air cells is again appreciated without acute sinus disease with remaining perineal sinuses unremarkable once again. MASTOID AIR CELLS: Unremarkable as visualized. No inflammatory changes. OTHER FINDINGS: None. IMPRESSION: Limited interval progression in chronic microangiopathy and diffuse cerebral atrophy again evident as well. No acute intracranial findings are appreciated grossly. No definitive acute intracranial findings. Follow-up MRI or CT is available as clinically warranted. Medical Decision Making Medical Decision Making: Impression: 86 year old female with weakness and productive cough Progress: Bloodwork, UA, Flu swab, CT Head, CXR and EKG ordered and reviewed. Azithromycin IVP, Rocephin IVP and IV Fluids administered. Case discussed with patient's PMD, Dr. Ross. Patient will be admitted to Telemetry for near syncope, dehydration, acute renal failure and community acquired penumonia. Disposition - Disposition Disposition Time: 15:15 Condition: FAIR - Clinical Impression Clinical Impression: Dehydration, Acute renal failure, Weakness, Community acquired pneumonia - Scribe Statement The provider has reviewed the documentation as recorded by the Scribe (Gardenia Hartley) Provider Attestation: All medical record entries made by the Scribe were at my direction and personally dictated by me. I have reviewed the chart and agree that the record accurately reflects my personal performance of the history, physical exam, medical decision making, and the department course for this patient. I have also personally directed, reviewed, and agree with the discharge instructions and disposition.
[2017-08-22] MEDS: Albuterol-Ipratrop 3 mg / 0.5 (3 ml) UD INH SCH ×4 (01:17→20:39)
[2017-08-22] MEDS: Fluticasone-Salmeterol 100-50mcg Diskus INH SCH ×2 (07:47→20:39)
[2017-08-22] MEDS: Tiotropium 18 mcg Cap For Inhalation INH SCH (07:47)
[2017-08-22 08:12] LABS: BASO % 0.7 % (0.0-2.0); EOS % 0.3 % (0.0-4.0); HEMOGLOBIN 11.6 g/dL (11.0-16.0); LYMPH # 2.3 K/uL (1.0-4.3); LYMPH % 36.5 % (20.0-40.0); MEAN CELL VOLUME 90.1 fL (81.0-99.0); MEAN CORPUSCULAR HGB CONC 33.3 g/dL (33.0-37.0); MEAN PLATELET VOLUME 7.7 fL (7.2-11.7); MONO # 0.7 K/uL (0.0-0.8); MONO % 11.1 % (0.0-10.0); NEUT # 3.2 K/uL (1.8-7.0); NEUT % 51.4 % (50.0-75.0); NRBC % 0.1 % (0.0-2.0); RBC 3.87 Mil/uL (3.80-5.20); RED CELL DISTRIBUTION WIDTH 15.2 % (11.5-14.5); WHITE BLOOD COUNT 6.2 K/uL (4.8-10.8)
[2017-08-22 08:31] LABS: ALB/GLOB RATIO 0.9 (1.0-2.1); ALBUMIN 3.3 g/dL (3.5-5.0); ALT/SGPT 31 U/L (9-52); AST/SGOT 66 U/L (14-36); BLOOD UREA NITROGEN 14 mg/dL (7-17); GFR AFRICAN-AMERICAN > 60; GFR NON-AFRICAN AMERICAN > 60
[2017-08-22] MEDS: Sodium Chloride 0.9% 1,000 ML IV SCH (08:31)
[2017-08-22 08:37] LABS: CK-MB 2.66 ng/mL (0.0-3.38)
--- NOTE | 2017-08-22 08:40 | CP.PCM.PN ---
Subjective - Date & Time of Evaluation Date of Evaluation: 08/22/17 Time of Evaluation: 08:38 - Subjective Subjective: pt is sitting up confrotable cough noted no fever no nausea Temp Pulse Resp BP Pulse Ox 98.5 F 92 H 20 128/71 95 08/22/17 03:48 08/22/17 08:23 08/22/17 02:19 08/22/17 02:19 08/22/17 07:25 chest rales regular hs abd soft edema weakness 08/22/17 08:08 08/22/17 08:08 08/22/17 08:08 labs improving renal failure better will stop ivf increase fluid copd better will need ct chest abd ct Objective - Vital Signs/Intake and Output Vital Signs (last 24 hours): Temp Pulse Resp BP Pulse Ox 98.5 F 92 H 20 128/71 95 08/22/17 03:48 08/22/17 08:23 08/22/17 02:19 08/22/17 02:19 08/22/17 07:25 Intake and Output: 08/22/17 08/22/17 06:59 18:59 Intake Total 750 Balance 750 - Medications Medications: Current Medications Albuterol/Ipratropium (Duoneb 3 Mg/0.5 Mg (3 Ml) Ud) 3 ml INH RQ6 [facility] Last Admin: 08/22/17 07:30 Dose: 3 ml Ceftriaxone Sodium 1 gm/ (Sodium Chloride) 100 mls @ 100 mls/hr IVPB DAILY [facility] PRN Reason: Protocol Last Admin: 08/21/17 15:08 Dose: 100 mls/hr Sodium Chloride (Sodium Chloride 0.9%) 1,000 mls @ 75 mls/hr IV .[id number] [facility] Last Admin: 08/22/17 08:31 Dose: 75 mls/hr Azithromycin 500 mg/ Sodium (Chloride) 250 mls @ 250 mls/hr IVPB DAILY [facility] PRN Reason: Protocol Ceftriaxone Sodium (Rocephin Iv 1 Gm Duplex) 50 mls @ 100 mls/hr IVPB DAILY [facility] PRN Reason: Protocol Methimazole (Tapazole) 5 mg PO BID [facility] Nystatin (Nystatin Oral Susp) 5 ml PO QID [facility] Last Admin: 08/21/17 22:10 Dose: Not Given Pantoprazole Sodium (Protonix Ec Tab) 40 mg PO DAILY [facility] Fluticasone/Salmeterol (Advair Diskus 100/50) 1 puff INH RQ12 [facility] Last Admin: 08/22/17 07:47 Dose: 1 puff Tiotropium [place] (Spiriva) 18 mcg INH RQ24 [facility] Last Admin: 08/22/17 07:47 Dose: 18 mcg - Labs Labs: 08/22/17 08:08 08/22/17 08:08
[2017-08-22] MEDS ORDERED: Azithromycin 500 MG in Sodium Chloride 0.9% 250 ML IVPB SCH (10:00)
[2017-08-22] MEDS ORDERED: cefTRIAXone IV 1 gm in Dextros 50 ML IVPB SCH (10:00)
--- NOTE | 2017-08-22 10:16 | CT ---
PROCEDURE: CT Chest without contrast HISTORY: lung mass and infiltrate COMPARISON: Portable chest 421 at [address] without contrast 07/13/2017. TECHNIQUE: Contiguous axial images were obtained through the chest without intravenous contrast enhancement. Sagittal and coronal reconstructions were performed. Radiation dose (DLP): 208.94 mGy-cm. This CT exam was performed using one or more of the following dose reduction techniques: Automated exposure control, adjustment of the mA and/or kV according to patient size, and/or use of iterative reconstruction technique. FINDINGS: LUNGS: Centrilobular emphysematous changes are reiterated bilaterally and are apical predominant including superior segment right lower lobe mild bronchiectasis is reiterated primarily at the bilateral lower lobes there is limited bilateral basilar dependent atelectasis. Fibrotic changes seen at the base of the lingula with likely interval nodular atelectasis identified at the right middle lobe inferiorly, best seen in image 78 through 80 series 3, not present on prior CT 07/13/2017. Limited patchy airspace disease is seen at the left upper lobe with none on the right. Two right upper lobe nodules appear marginally increased in size in the interval. At the right apex, a 5.3 mm nodule is seen image 14 series 3 type previously measuring 5 mm. A 2nd nodule is seen at the right lobe upper lobe measure 8.4 mm in image 36 previously measuring 7 mm. MEDIASTINUM: An atherosclerotic nonaneurysmal thoracic aorta is reiterated. Normal sized heart. Main pulmonary artery unremarkable. No vascular congestion. No lymphadenopathy. PLEURA: No pleural fluid. No pneumothorax. BONES: No fracture. No destructive lesion. UPPER ABDOMEN: Bilateral renal cysts again evident. OTHER FINDINGS: None. IMPRESSION: 1. Potential subtle increase in size 2 right lung nodules at the right upper lobe as discussed above. No significant mediastinal hilar adenopathy though the lack images contrast limits evaluation the mediastinum. Nodular atelectasis favored over infiltrate at the right lower lobe as discussed above. Consider possible PET-CT follow-up or even CT-guided biopsy of the larger of the left upper lobe 2 lesions. As alternative, follow-up chest CT in 2-3 months can be performed to confirm stability or increase size of these nodules. 2. COPD reiterated. 3. Trace patchy airspace disease left upper lobe, nonspecific. No CT correlate corresponding to subtle increased density at the right upper lobe seen in prior chest radiograph 08/21/2017.
[2017-08-22] MEDS: Pantoprazole 40 mg EC Tab PO SCH (10:40)
[2017-08-22] MEDS: Nystatin 100,000 Units/ml Oral Susp 5 ml UD PO SCH ×4 (10:41→21:28)
[2017-08-22] MEDS: methIMAzole 5 MG TAB PO SCH ×2 (10:53→18:23)
--- NOTE | 2017-08-22 12:27 | US ---
HISTORY: uterine mass COMPARISON: None available. TECHNIQUE: Transabdominal and transvaginal pelvic ultrasound was performed with longitudinal and transverse images submitted for interpretation. FINDINGS: UTERUS: Measures 545134 x 3.8 cm. Anterior uterus is appreciated with peripheral vascular calcifications surrounding the myometrium anteriorly as well as posteriorly. No suspicious cyst or solid mass appreciable. Vascular changes seen in the periphery as well. ENDOMETRIUM: Measures 2.9 mm in diameter. A small cystic structure measuring 3.8 mm is seen either in the anterior right submucous myometrial space or possibly within the anterior endometrium. CERVIX: No cervical abnormality identified. RIGHT OVARY: Not identified. No suspicious adnexal mass or fluid collection appreciable. LEFT OVARY: Not identified. No suspicious adnexal mass or fluid collection appreciable. FREE FLUID: No significant free fluid noted. OTHER FINDINGS: None. IMPRESSION: 3.8 mm cyst appears simple at the deep anterior fundal submucous myometrial space and may represent a tiny degenerated myoma though it may be intrinsically within the endometrium. The uterus is atrophic. Neither ovary is identified suggesting either atrophy or prior bilateral oophorectomy. Clinically correlate further.
[2017-08-22] MEDS ORDERED: Promethazine 6.25 MG/5 ML CUP PO PRN (19:00)
--- NOTE | 2017-08-22 20:20 | CP.PCM.CON ---
History of Present Illness - History of Present Illness History of Present Illness: Reason for consultation: Dizziness and near syncope HPI: 86 year old female with past medical history of HTN,COPD, active smoker admitted for dizziness and near syncope. Because of abdominal pain pt has not been eating for the past 3 days. Denies any chest pain, shortness of breath, palpitations,fever, chills. Has difficuty of walking due to leg pains. Review of Systems - Constitutional Constitutional: Fatigue, Weakness - EENT Eyes: absent: As Per HPI, Blind Spots, Blurred Vision, Change in Vision, Decreased Night Vision, Diplopia, Discharge, Dry Eye, Exophthalmos, Floaters, Irritation, Itchy Eyes, Loss of Peripheral Vision, Pain, Photophobia, Requires Corrective Lenses, Sees Flashes, Spots in Vision, Tunnel Vision, Other Visual Disturbances, Loss of Vision, Other Ears: absent: As Per HPI, Decreased Hearing, Ear Discharge, Ear Pain, Tinnitus, Abnormal Hearing, Disequilibrium, Dizziness, Other Nose/Mouth/Throat: absent: As Per HPI, Epistaxis, Nasal Congestion, Nasal Discharge, Nasal Obstruction, Nasal Trauma, Nose Pain, Post Nasal Drip, Sinus Pain, Sinus Pressure, Bleeding Gums, Change in Voice, Dental Pain, Dry Mouth, Dysphagia, Halitosis, Hoarsness, Lip Swelling, Mouth Lesions, Mouth Pain, Odynophagia, Sore Throat, Throat Swelling, Tongue Swelling, Facial Pain, Neck Pain, Neck Mass, Other - Cardiovascular Cardiovascular: absent: As Per HPI, Acrocyanosis, Chest Pain, Chest Pain at Rest , Chest Pain with Activity, Claudication, Diaphoresis, Dyspnea, Dyspnea on Exertion, Edema, Irregular Heart Rhythm, Pain Radiating to Arm/Neck/Jaw, Leg Edema, Leg Ulcers, Lightheadedness, Orthopnea, Palpitations, Paroxysmal Nocturnal Dyspnea, Pedal Edema, Radiating Pain, Rapid Heart Rate, Slow Heart Rate, Syncope, Other - Respiratory Respiratory: Dyspnea on Exertion - Gastrointestinal Gastrointestinal: Abdominal Pain - Genitourinary Genitourinary: absent: As Per HPI, Change in Urinary Stream, Difficulty Urinating, Dysuria, Flank Pain, Hematuria, Pyuria, Nocturia, Urinary Incontinence, Urinary Frequency, Urinary Hesitance, Urinary Urgency, Voiding Freq/Small Amts, Freq UTI, Hx Renal/Bladder Calculi, Hx /Renal Surgery, Bladder Distension, Other - Musculoskeletal Musculoskeletal: Radiating Pain into Limb - Integumentary Integumentary: absent: As Per HPI, Acne, Alopecia, Bleeding Lesions, Change in Hair, Change in Nails, Change in Pigmentation, Changing Lesions, Dry Skin, Erythema, Furuncle, Hirsutism, Lesions, New Lesions, Non-Healing Lesions, Photosensitivity, Pruritus, Rash, Skin Pain, Skin Ulcer, Sores, Striae, Swelling , Unusual Bruising, Wounds, Jaundice, Other - Neurological Neurological: Dizziness - Psychiatric Psychiatric: Other Additional comments: difficulty in sleeping - Hematologic/Lymphatic Hematologic: absent: As Per HPI, Easy Bleeding, Easy Bruising, Lymphadenopathy, Other Past Patient History - Infectious Disease Hx of Infectious Diseases: None - Past Medical History & Family History Past Medical History?: Yes - Past Social History Smoking Status: Former Smoker - CARDIAC Hx Hypertension: Yes - PULMONARY Hx Asthma: Yes Hx Chronic Obstructive Pulmonary Disease (COPD): Yes - NEUROLOGICAL Hx Neurological Disorder: No - HEENT Hx HEENT Problems: No - RENAL Hx Chronic Kidney Disease: No - ENDOCRINE/METABOLIC Hx Hyperthyroidism: Yes Hx Hypothyroidism: No - HEMATOLOGICAL/ONCOLOGICAL Hx Blood Transfusions: No - INTEGUMENTARY Hx Dermatological Problems: No - MUSCULOSKELETAL/RHEUMATOLOGICAL Hx Falls: Yes - GASTROINTESTINAL Hx Gastrointestinal Disorders: No - GENITOURINARY/GYNECOLOGICAL Hx Genitourinary Disorders: No - PSYCHIATRIC Hx Substance Use: No - SURGICAL HISTORY Hx Surgeries: Yes Other/Comment: "EYE IMPLANTS" - ANESTHESIA Hx Anesthesia: Yes Hx Anesthesia Reactions: No Hx Malignant Hyperthermia: No Has any member of the family had a problem w/ anesthesia?: No Meds Allergies/Adverse Reactions: Allergies Allergy/AdvReac Type Severity Reaction Status Date / Time No Known Allergies Allergy Verified 08/21/17 12:50 - Medications Medications: Current Medications Acetaminophen (Tylenol 325mg Tab) 650 mg PO Q6 PRN PRN Reason: Fever >100.4 F Last Admin: 08/22/17 15:39 Dose: 650 mg Albuterol/Ipratropium (Duoneb 3 Mg/0.5 Mg (3 Ml) Ud) 3 ml INH RQ6 [facility] Last Admin: 08/22/17 13:07 Dose: 3 ml Docusate Sodium (Colace) 100 mg PO BID [facility] Last Admin: 08/22/17 18:05 Dose: 100 mg Azithromycin 500 mg/ Sodium (Chloride) 250 mls @ 250 mls/hr IVPB DAILY [facility] PRN Reason: Protocol Last Admin: 08/22/17 10:38 Dose: 250 mls/hr Ceftriaxone Sodium 1 gm/ (Sodium Chloride) 100 mls @ 100 mls/hr IVPB DAILY@ 1500 [facility] PRN Reason: Protocol Last Admin: 08/22/17 14:18 Dose: 100 mls/hr Methimazole (Tapazole) 5 mg PO BID [facility] Last Admin: 08/22/17 18:23 Dose: 5 mg Nystatin (Nystatin Oral Susp) 5 ml PO QID [facility] Last Admin: 08/22/17 18:05 Dose: 5 ml Pantoprazole Sodium (Protonix Ec Tab) 40 mg PO DAILY [facility] Last Admin: 08/22/17 10:40 Dose: 40 mg Promethazine HCl (Phenergan Syrup) 6.25 mg PO Q6H PRN PRN Reason: Cough Fluticasone/Salmeterol (Advair Diskus 100/50) 1 puff INH RQ12 [facility] Last Admin: 08/22/17 07:47 Dose: 1 puff Tiotropium [place] (Spiriva) 18 mcg INH RQ24 [facility] Last Admin: 08/22/17 07:47 Dose: 18 mcg Physical Exam - Constitutional Appears: No Acute Distress - Head Exam Head Exam: NORMAL INSPECTION - Eye Exam Eye Exam: Normal appearance - ENT Exam ENT Exam: Mucous Membranes Moist - Neck Exam Neck exam: Positive for: Full Rom, Normal Inspection - Respiratory Exam Respiratory Exam: Clear to Auscultation Bilateral - Cardiovascular Exam Cardiovascular Exam: REGULAR RHYTHM, +S1, +S2 - GI/Abdominal Exam GI & Abdominal Exam: Normal Bowel Sounds - Extremities Exam Extremities exam: Positive for: normal inspection, pedal pulses present - Neurological Exam Neurological exam: Alert, CN II-XII Intact, Oriented x3 - Psychiatric Exam Psychiatric exam: Normal Mood - Skin Skin Exam: Intact Results - Vital Signs Recent Vital Signs: Last Vital Signs Temp 100.8 F H 08/22/17 15:39 Pulse 94 H 08/22/17 08:54 Resp 20 08/22/17 08:54 BP 159/68 H 08/22/17 08:54 Pulse Ox 95 08/22/17 08:54 - Labs Result Diagrams: 08/22/17 08:08 08/22/17 08:08 Labs: Laboratory Results - last 24 hr 08/21/17 08/22/17 08/22/17 22:50 08:08 08:08 WBC 6.2 RBC 3.87 Hgb 11.6 Hct 34.9 MCV 90.1 MCH 30.0 MCHC 33.3 RDW 15.2 H Plt Count 225 MPV 7.7 Neut % (Auto) 51.4 Lymph % (Auto) 36.5 [place] % (Auto) 11.1 H Eos % (Auto) 0.3 Baso % (Auto) 0.7 Neut # (Auto) 3.2 Lymph # (Auto) 2.3 [place] # (Auto) 0.7 Eos # (Auto) 0.0 Baso # (Auto) 0.0 Sodium 138 145 Potassium 3.4 L 3.6 Chloride 102 103 Carbon Dioxide 27 29 Anion Gap 12 17 BUN 26 H 14 Creatinine 1.1 0.7 Est GFR ( Amer) 57 > 60 Est GFR (Non-Af Amer) 47 > 60 Random Glucose 90 92 Calcium 7.5 L 8.0 L Total Bilirubin 0.4 AST 66 H D ALT 31 Alkaline Phosphatase 68 Total Creatine Kinase 1043 H CK-MB (Mass) 2.66 Troponin I 0.0430 Total Protein 6.9 Albumin 3.3 L Globulin 3.6 Albumin/Globulin Ratio 0.9 L TSH 3rd Generation 0.96 Assessment & Plan - Assessment and Plan (Free Text) Assessment: Assessment: 1. Dizziness most likely secondary to dehydration due to poor oral intake. 2. Cardiac work up done in the past - no CAD. 3. Hypertension 4.COPD Plan: Monitor intake. For echocardiogram.
[2017-08-23] MEDS: Albuterol-Ipratrop 3 mg / 0.5 (3 ml) UD INH SCH ×3 (01:13→13:43)
[2017-08-23] MEDS: Tiotropium 18 mcg Cap For Inhalation INH SCH (07:43)
[2017-08-23] MEDS: Fluticasone-Salmeterol 100-50mcg Diskus INH SCH (07:43)
[2017-08-23 08:18] VITALS: BP 157/77; PULSE 90; RESP 18; TEMP 99.1; O2SAT 94
[2017-08-23] MEDS: Pantoprazole 40 mg EC Tab PO SCH (11:12)
[2017-08-23] MEDS: methIMAzole 5 MG TAB PO SCH (11:12)
[2017-08-23] MEDS: Nystatin 100,000 Units/ml Oral Susp 5 ml UD PO SCH (11:12)
--- NOTE | 2017-08-23 13:40 | CP.PCM.PN ---
Subjective - Date & Time of Evaluation Date of Evaluation: 08/23/17 Time of Evaluation: 11:30 - Subjective Subjective: Patient seen today , awake alert, ox3, NAD , denies any dizziness, headache, palpitations, abdominal pain, N/V/D No overnight events reported by RN Objective - Vital Signs/Intake and Output Vital Signs (last 24 hours): Temp Pulse Resp BP Pulse Ox 99.1 F 90 18 157/77 H 94 L 08/23/17 07:40 08/23/17 12:30 08/23/17 07:40 08/23/17 07:40 08/23/17 12:30 Intake and Output: 08/23/17 08/23/17 06:59 18:59 Intake Total 240 Balance 240 - Medications Medications: Current Medications Acetaminophen (Tylenol 325mg Tab) 650 mg PO Q6 PRN PRN Reason: Fever >100.4 F Last Admin: 08/22/17 15:39 Dose: 650 mg Albuterol/Ipratropium (Duoneb 3 Mg/0.5 Mg (3 Ml) Ud) 3 ml INH RQ6 [facility] Last Admin: 08/23/17 07:43 Dose: 3 ml Docusate Sodium (Colace) 100 mg PO BID [facility] Last Admin: 08/23/17 11:13 Dose: Not Given Azithromycin 500 mg/ Sodium (Chloride) 250 mls @ 250 mls/hr IVPB DAILY [facility] PRN Reason: Protocol Last Admin: 08/22/17 10:38 Dose: 250 mls/hr Ceftriaxone Sodium 1 gm/ (Sodium Chloride) 100 mls @ 100 mls/hr IVPB DAILY@ 1500 [facility] PRN Reason: Protocol Last Admin: 08/22/17 14:18 Dose: 100 mls/hr Methimazole (Tapazole) 5 mg PO BID [facility] Last Admin: 08/23/17 11:12 Dose: 5 mg Nystatin (Nystatin Oral Susp) 5 ml PO QID [facility] Last Admin: 08/23/17 11:12 Dose: 5 ml Pantoprazole Sodium (Protonix Ec Tab) 40 mg PO DAILY [facility] Last Admin: 08/23/17 11:12 Dose: 40 mg Promethazine HCl (Phenergan Syrup) 6.25 mg PO Q6H PRN PRN Reason: Cough Last Admin: 08/22/17 21:28 Dose: 6.25 mg Fluticasone/Salmeterol (Advair Diskus 100/50) 1 puff INH RQ12 [facility] Last Admin: 08/23/17 07:43 Dose: 1 puff Tiotropium [place] (Spiriva) 18 mcg INH RQ24 [facility] Last Admin: 08/23/17 07:43 Dose: 18 mcg - Labs Labs: 08/22/17 08:08 08/22/17 08:08 - Constitutional Appears: Well, No Acute Distress - Respiratory Exam Respiratory Exam: Clear to Ausculation Bilateral, NORMAL BREATHING PATTERN - Cardiovascular Exam Cardiovascular Exam: REGULAR RHYTHM, +S1, +S2 - Neurological Exam Neurological Exam: Alert, Awake, Oriented x3 Assessment and Plan - Assessment and Plan (Free Text) Assessment: A/P 86 yr old femal e with pmhx of hypertension, hyperthyroidism, COPD, Dehydration, Acute renal failure, Weakness, Community acquired pneumonia, near syncope Patient clinically improved echo done - pending result seen by Dr. Novak seen Physical therapy today and recommends home PT and home care services, Patient denies any service at home D/W Dr. Ross, stable for discharge home today and f/u with [facility] service next week Discharge plan discussed with patient and cousin at [facility], who understands and agrees with plan patient instructed to returns to ED if symptoms returns or any concerning symptoms
--- NOTE | 2017-08-23 18:01 | CARD ---
APPROVED REPORT EXAM: Two-dimensional and M-mode echocardiogram with Doppler and color Doppler. Other Information Quality : GoodRhythm : INDICATION COPD RISK FACTORS Hypertension 2D DIMENSIONS IVSd1.2 (0.7-1.1cm)LVDd5.2 (3.9-5.9cm) PWd1.3 (0.7-1.1cm)LVDs3.8 (2.5-4.0cm) FS (%) 27.6 %LVEF (%)45.0 (>50%) M-Mode DIMENSIONS Left Atrium (MM)3.83 (2.5-4.0cm)Aortic Root3.27 (2.2-3.7cm) Aortic Cusp Exc.1.85 (1.5-2.0cm) Mitral Valve MV E Pmqddbfj96.7cm/sMV A Tbixkdll784.4cm/sE/A ratio0.6 TDI E/Lateral E'0.0E/Medial E'0.0 Tricuspid Valve TR Peak [id number]/sTR Peak Gr.35mmHg LEFT VENTRICLE The left ventricle is normal size. There is normal left ventricular wall thickness. The systolic function is mildly impaired. Transmitral Doppler flow pattern is abnormal. RIGHT VENTRICLE The right ventricle is normal size. ATRIA The left atrium size is normal. The right atrium size is normal. AORTIC VALVE The aortic valve is normal in structure. MITRAL VALVE Mitral regurgitation is mild. TRICUSPID VALVE There is mild tricuspid regurgitation. <Conclusion> Mild LV systolic dysfunction. Diastolic dysfunction. Mild MR. Mild TR. Normal chamber size.
--- NOTE | 2017-08-24 22:09 | CARD ---
APPROVED REPORT EKG Measurement Heart [id number] <Conclusion> Normal sinus rhythm Voltage criteria for left ventricular hypertrophy Abnormal ECG
== END 2017-08-23 16:19 | disposition home or self-care (01) | DRG 190 ==
LOC: C.ER 12:40 → C.9E 15:50 → C.6T 17:16
PROVIDERS: ADMIT Internal Medicine; ATTEND Internal Medicine
DX: J44.0 Chronic obstructive pulmonary disease with (acute) lower respiratory infection (principal); J18.9 Pneumonia, unspecified organism; N17.9 Acute kidney failure, unspecified; J44.1 Chronic obstructive pulmonary disease with (acute) exacerbation; E03.9 Hypothyroidism, unspecified; E86.0 Dehydration; I10 Essential (primary) hypertension; F17.210 Nicotine dependence, cigarettes, uncomplicated; R91.1 Solitary pulmonary nodule; R55 Syncope and collapse